=== PATIENT | female | born 1950 | race Caucasian/White ===

== ENCOUNTER → 2016-11-12 16:46 | Outpatient (CLI) | payer BC | END | disposition home or self-care (01) | LOC: D.MAMMO 09:00 | DX: Z12.31 Encounter for screening mammogram for malignant neoplasm of breast (principal) ==

== ENCOUNTER → 2016-12-12 15:02 | Outpatient (CLI) | payer MEDICARE, MEDICAID | END | disposition home or self-care (01) | LOC: D.MAMMO 13:30 | DX: R92.8 Other abnormal and inconclusive findings on diagnostic imaging of breast (principal) ==

== ENCOUNTER 2016-12-19 09:54 | Outpatient (CLI) | payer MEDICARE, MEDICAID ==
[~2016-12-19] VITALS: Ht 162.6 cm; Wt 56.4 kg
[2016-12-19 10:36] VITALS: BP 146/81; Ht 162.6 cm; Wt 56.4 kg
[2016-12-19] MEDS ORDERED: CITRACAL + D E1 EACH PO (10:41)
== END 2016-12-19 10:47 | disposition home or self-care (01) ==
LOC: D.OPS 09:54
DX: M81.0 Age-related osteoporosis without current pathological fracture (principal)

== ENCOUNTER → 2018-03-06 13:31 | Outpatient (CLI) | payer MEDICARE, OTHER ==
[2016-12-19 10:36] VITALS: BMI 21.3
[~2018-03-06 13:31] MED LIST: CITRACAL + D E1 EACH PO
== END | disposition home or self-care (01) ==
LOC: D.CT 13:31
DX: R20.2 Paresthesia of skin (principal)

== ENCOUNTER → 2018-03-31 15:21 | Outpatient (CLI) | payer MEDICARE, OTHER ==
[2016-12-19 10:36] VITALS: BMI 21.3
== END | disposition home or self-care (01) ==
LOC: D.MAMMO 09:30
DX: Z12.31 Encounter for screening mammogram for malignant neoplasm of breast (principal)

== ENCOUNTER 2019-04-21 18:00 | Outpatient (CLI) | payer MEDICARE, BC ==
[2016-12-19 10:36] VITALS: BMI 21.3
== END 2019-04-21 23:59 | disposition home or self-care (01) ==
LOC: D.MAMMO 18:00
PROVIDERS: ATTEND Family Medicine
DX: Z12.31 Encounter for screening mammogram for malignant neoplasm of breast (principal)